=== PATIENT | female | born 1990 | race Caucasian/White ===

== ENCOUNTER 2018-10-15 19:02 | Emergency (ER) | payer SELFPAY ==
[~2018-10-15] VITALS: Ht 165.1 cm; Wt 63.5 kg
[2018-10-15 19:14] VITALS: BP 108/76
--- NOTE | 2018-10-15 19:14 | NUR ---
28 y/o female presents to ed with c/o lac to right hand. pt was hanging pictures at home, dropped frand and sustained 4inch lac to right palm. bleeding controlled. vss. 11/22 pain. er md aware. continue to monitor.
--- NOTE | 2018-10-15 19:14 | NUR ---
TO BED # 11 AMBULATORY
[2018-10-15] MEDS ORDERED: LIDOCAINE 1% 500 MG/50 ML VIAL INJ SCH (20:15)
[2018-10-15] MEDS ORDERED: LIDOCAINE MPF 1% - 5 mL VIAL 15 ML ONE (20:32)
--- NOTE | 2018-10-15 20:55 | NUR ---
PTS WOUND WAS COVERED IN BACITRACIN THEN A NON ADHESIVE GAUZE WAS PLACED TO COVER WOUND ROLL GAUZE WAS THEN PLACED TO WRAP WOUND
[2018-10-15] MEDS: BACITRACIN ZINC/POLYMYXIN B OINT 30 GM TUBE TP SCH ×2 (20:58→21:46)
[2018-10-15] MEDS ORDERED: BACITRACIN OINT 500 UNITS/GM PKT TP ONE ×2 (21:00→21:45)
--- NOTE | 2018-10-15 21:09 | NUR ---
PT DISCHARGED BY DR TORIBIO. PT STATES 0/10 PAIN UPON DC FROM ER. RX OF MOTRIN GIVEN. SIDE EFFECTS EXPLAINED. DR TORIBIO INSTRUCTED PT TO F/U WITH PCP AND WHEN TO RETURN TO ER. PT VERBALLIZED UNDERSTANDING OF DC INSTRUCTIONS. ALL QUESTIONS ANSWERED.
== END 2018-10-15 21:09 | disposition home or self-care (01) ==
LOC: MED 19:02
DX: S61.411A Laceration without foreign body of right hand, initial encounter (principal); Z88.0 Allergy status to penicillin; W45.8XXA Other foreign body or object entering through skin, initial encounter; Y93.89 Activity, other specified; Y92.099 Unspecified place in other non-institutional residence as the place of occurrence of the external cause; Y99.8 Other external cause status
CPT/HCPCS: 12002; 90471; 90715; 99283; J2001

== ENCOUNTER 2018-10-22 16:49 | Emergency (ER) | payer SELFPAY ==
[~2018-10-22] VITALS: Ht 166.4 cm; Wt 66.2 kg
[2018-10-22 16:58] VITALS: BP 131/60
--- NOTE | 2018-10-22 17:02 | NUR ---
PT TO WAIT IN ER LOBBY. VSS. PT [id number]. SITE APPEARS TO BE HEALING WELL.
--- NOTE | 2018-10-22 17:05 | NUR ---
PT AMBULATORY TO ER CHAIR D
--- NOTE | 2018-10-22 17:23 | NUR ---
PT BIB SELF FOR WOUND CHECK TO RT HAND , S/P SUTURES PLACED ON SATURDAY HERE IN ER. NO BLEEDING OR DRAINAGE.
[2018-10-22] MEDS ORDERED: BACITRACIN OINT 500 UNITS/GM PKT TP ONE ×2 (18:05→18:19)
--- NOTE | 2018-10-22 18:06 | NUR ---
REMOVED SUTURES FROM PATIENT'S RIGHT HAND
[2018-10-22 18:30] VITALS: BP 132/60
== END 2018-10-22 18:28 | disposition home or self-care (01) ==
LOC: MED 16:49
DX: S61.411D Laceration without foreign body of right hand, subsequent encounter (principal); Z48.02 Encounter for removal of sutures; Z88.0 Allergy status to penicillin; W45.8XXD Other foreign body or object entering through skin, subsequent encounter
CPT/HCPCS: 99283

== ENCOUNTER 2019-09-19 10:00 | Emergency (ER) | payer MEDICAID ==
[~2019-09-19] VITALS: Ht 170.2 cm; Wt 74.8 kg
--- NOTE | 2019-09-19 10:04 | NUR ---
AMBULATED TO BED 7
[2019-09-19 10:07] VITALS: BP 126/65
--- NOTE | 2019-09-19 10:14 | NUR ---
pt ambulated to bathroom, steady gait.
--- NOTE | 2019-09-19 10:16 | NUR ---
29 y/f presents to ed for s/p US today. Pt reports she had an ultrasound today and was told no fht noted; 2 wks ago had an ultrasound and was told all was fine, and that due date was expected to be mar 17. Pt denies injury , denies vaginal bleeding/discharge or back pain. Reports she had dark urine, denies dysuria, hematuria. Denies abd cramping. Abd soft, BS active X4 quadrants. Lungs clear. No edema noted, pulses 2+. A0 lmp 06/11/19 hx--denies rx--none
--- NOTE | 2019-09-19 10:16 | NUR ---
Pt reports he had nausea in the first trimester that subsided. pt also report she has been taking otc vitamins.
--- NOTE | 2019-09-19 10:22 | NUR ---
dr. leonard at bedside.
--- NOTE | 2019-09-19 10:30 | NUR ---
lab called to roller picker urine specimen.
[2019-09-19 10:39] LABS: BILIRUBIN,URINE NEGATIVE (NEGATIVE); BLOOD, URINE NEGATIVE (NEGATIVE); COLOR,URINE YELLOW (YELLOW); LEUKOCYTE ESTERASE ,URINE 1+ (NEGATIVE); NITRITE, URINE NEGATIVE (NEGATIVE); UGLUCOSE NEGATIVE (NEGATIVE)
--- NOTE | 2019-09-19 10:48 | NUR ---
US AT BEDSIDE.
[2019-09-19 10:51] LABS: APPEARANCE,URINE HAZY (CLEAR); RBC,URINE NONE SEEN /HPF (0-5); WBC,URINE 0-5 /HPF (0-5)
--- NOTE | 2019-09-19 11:58 | NUR ---
VS WNL. PT DENIES ANY PAIN, RR EVEN AND UNALBORED. ALL NEEDS MET AT THIS TIME. PT AWARE THAT DR. DODSON WILL EVALUATE PT AT [facility] IN ED.
--- NOTE | 2019-09-19 12:14 | NUR ---
PT AMBULATED TO BATHROOM STEADY GAIT.
--- NOTE | 2019-09-19 12:37 | NUR ---
DR. DODSON AT BEDSIDE.
--- NOTE | 2019-09-19 13:10 | NUR ---
UPON ENTERING ROOM TO ESTABLISH IV, I EXPLAINED TO PATIENT THAT SHE WOULD BE ADMITTED. PT THEN STATED SHE DID NOT WANT TO BE ADMITTED. PT PREFERS TO GO HOME AND FOLLOW UP WITH [facility] ON SATURDAY. I CALLED AND SPOKE WITH DR. DODSON. DR. DODSON STATED PATIENT COULD CALL HIS OFFICE ON SATURDAY FOR FOLLOW UP. PT MADE AWARE AND STATES SHE WANTS TO GO HOME AND NOT BE ADMITTED. DR. MARCUS MADE AWARE OF PT'S DISCHARGE.
[2019-09-19 13:31] VITALS: BP 125/58
--- NOTE | 2019-09-19 13:31 | NUR ---
Patient discharged with v/s stable. Written and verbal after care instructions given and explained. Patient verbalized understanding. Ambulatory with steady gait. All questions addressed prior to discharge. Advised to follow up with PMD. PT INSTRUCTED TO FOLLOW UP WITH DR. DODSON.
--- NOTE | 2019-09-20 07:51 | NUR ---
PATIENT HAS BEEN SCREENED AND CATEGORIZED LOW NUTRITION RISK. PATIENT WILL BE SEEN WITHIN 7 DAYS OF ADMISSION. 09/25/19 EDGARD HENDRIX MS, RDN
== END 2019-09-19 13:31 | disposition home or self-care (01) ==
LOC: MED 10:00 → MTU 12:53 → UNDOADMIN 12:53
DX: O02.1 Missed abortion (principal); Z3A.12 12 weeks gestation of pregnancy; Z88.0 Allergy status to penicillin
CPT/HCPCS: 76801; 81001; 81025; 87086; 99284; Q0092